=== PATIENT | female | born 1935 | race Caucasian/White ===

== ENCOUNTER → 2020-10-29 | Outpatient (CLI) | payer MEDICARE, MEDICAID ==
[2015-11-19 11:13] VITALS: BP 211/94
[~2020-10-29] MED LIST: ACET-1871 PO; AMLO2.5T2 PO; ASPI-630 PO; CA C1TAB28 PO; CLON1PAT TD; CRESTOR5 MG PO; FENO160T PO; FERR325T58 PO; FURO20TA3 PO; ISOS120T4 PO; LEVO250T25 PO; LEVO50TA5 PO; LEVO88TA4 PO; LISI-130 PO; METF-658 PO; METF10007 PO; NIFE30TA95 PO; OMEP20CA16 PO; PANT20TA2 PO; PANT40TA77 PO; POTA10TA12 PO; WARF3TAB54 PO; WARF4TAB64 PO
== END ==
LOC: LAB 11:25
PROVIDERS: ATTEND Surgery
DX: Z01.812 Encounter for preprocedural laboratory examination (principal); Z20.822 Contact with and (suspected) exposure to COVID-19; L72.3 Sebaceous cyst
CPT/HCPCS: U0003; U0005

== ENCOUNTER → 2020-11-01 | Day surgery (SDC) | payer MEDICARE, MEDICAID ==
[~2020-11-01] MED LIST changes: +LIDOCAINE 1%/EPI 1:100,000 20 ML VIAL. INJ ONE
[2020-11-01 08:16] VITALS: BP 186/84
--- NOTE | 2020-11-01 09:17 | PDOC4 ---
Operative Note Operative Note Date: November 012020 at 915 Preoperative diagnosis: Mid back mass Postoperative diagnosis: Same Procedure: Excision of mid back mass Surgeon: Sabino Specimen: Mid back mass Dictation: Patient 85-year-old female complaining of a painful mass in the mid of her back for some time. Procedure of excision of mass was explained to the patient detail was benefits were also discussed including bleeding infection alternatives to this procedure also discussed with patient who seemed to understand and gave a verbal written consent had procedure performed. Patient was taken to the minors room she is left in her wheelchair leaning forward on a padded table. Area on her mid back was prepped and draped usual sterile fashion using ChloraPrep the area around the mass was injected with 1% lidocaine with epinephrine once this was anesthetized an elliptical incision was made with 15 blade scalpel this carried down through the subcutaneous tissue sharply excising the mass which appeared to be a sebaceous cyst. The mass was removed in total and sent for pathology. The incision was approximately 4 cm in length and the mass was 2 cm in diameter. Wound was then closed in a single layer 4-0 subcuticular Monocryl Mastisol Steri-Strips and island dressing were applied. Patient tolerated procedure well was discharged home in stable condition all sponge instrument needle counts listed as correct estimated blood loss 5 mL. TRACEY SO MD Nov 01, 2020 09:17
--- NOTE | 2020-11-01 09:18 | DISCH ---
DISCHARGE INSTRUCTIONS Condition on Discharge Condition on Discharge: Stable Activity After Discharge Activity Instructions for Disc: Resume previous activity Diet after Discharge Diet after Discharge: Cardiac, No Added Sugar, Diabetic No Calorie Level Wound Incision Care Other wound/incision instructi: Tamy shower 24 hours Checks after Discharge Checks after discharge: Check blood sugar, ac/hs Contacting the DRShonda after DC Call your doctor for: If your condition worsens Follow-Up Follow up with: Dr. So in 2 weeks Treatment/Equipment after DC Adaptive Equipment Issued: None TRACEY SO MD Nov 01, 2020 09:18
--- NOTE | 2020-11-07 18:07 | PATHOLOGY ---
[facility] Accession Number: [id number] . 01 Material submitted: . back - SEBACEOUS CYST MID BACK. Modifiers: mid . 01 Clinical history: . EXCISION OF SEBACEOUS CYST MID BACK . 02 Diagnosis: Skin and subcutaneous tissue, mid back cyst excision: - Pilar cyst, focally ruptured, with chronic inflammation, cholesterol granulomas, and foreign body granulomatous reaction. 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 02 Comment: There is no evidence of malignancy. 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 02 Electronically signed: . Clovis Hernandez MD, Pathologist NPI- [id number] . 01 Gross description: . Received in formalin labeled "Jami Mendoza, sebaceous cyst mid back" is a previously opened simms-brown cystic structure measuring 1.9 x 1.6 x 1.3 cm with attached portion of simms-white skin measuring 2.2 x 0.5 x 0.4 cm. Upon sectioning, the cyst contains simms-white amorphous material. [employer] sections are submitted in cassette A1. ([facility] [place] 11/06/2020) [facility] 11/06/2020 1026 Local . 02 Pathologist provided ICD-10: L72.11, L98.9, L92.9 . 02 CPT . 433790 Specimen Comment: A courtesy copy of this report has been sent to [phone], [phone] Specimen Comment: [id number] Specimen Comment: Report sent to / DR FERRARO Performed at: 01 [facility] [address] [place] [address] [address], [place], [place] [id number] MD Alli Castaneda MD Phone: [phone] Performed at: [address] [id number] MD Clovis Hernandez MD Phone: [phone]
== END | disposition home or self-care (01) ==
LOC: SURG 07:47
PROVIDERS: ATTEND Surgery
DX: R22.2 Localized swelling, mass and lump, trunk (principal); L72.11 Pilar cyst; L98.9 Disorder of the skin and subcutaneous tissue, unspecified; L92.9 Granulomatous disorder of the skin and subcutaneous tissue, unspecified; L72.3 Sebaceous cyst; I25.10 Atherosclerotic heart disease of native coronary artery without angina pectoris; I10 Essential (primary) hypertension; E78.00 Pure hypercholesterolemia, unspecified; K21.9 Gastro-esophageal reflux disease without esophagitis; G47.30 Sleep apnea, unspecified; E11.9 Type 2 diabetes mellitus without complications; M19.90 Unspecified osteoarthritis, unspecified site; E03.9 Hypothyroidism, unspecified; M10.9 Gout, unspecified; Z98.51 Tubal ligation status; Z90.49 Acquired absence of other specified parts of digestive tract; Z90.710 Acquired absence of both cervix and uterus; Z98.890 Other specified postprocedural states; Z79.82 Long term (current) use of aspirin; Z79.84 Long term (current) use of oral hypoglycemic drugs; Z79.899 Other long term (current) drug therapy; Z88.8 Allergy status to other drugs, medicaments and biological substances; Z83.3 Family history of diabetes mellitus
CPT/HCPCS: 11402; 88304; J3490